=== PATIENT | female | born 2000 | race Caucasian/White ===

== ENCOUNTER 2022-01-16 19:30 | Observation (INO) ==
[2022-01-16] MEDS ORDERED: SODIUM CHLORIDE 0.9% 1000ML 1,000 ML IV ONE ×2 (20:32→21:27)
--- NOTE | 2022-01-16 20:43 | Emergency Department Note ---
History of Present Illness General Chief complaint: Throat Pain Stated complaint: TONSILITIS FLARE, NEEDS ANTIBIOTICS Time Seen by Provider: 01/16/22 19:37 History of Present Illness Maximum Pain Intensity: 4 This is an otherwise healthy 21-year-old female accompanied by her boyfriend who presents with recurrence of sore throat and fever. Her fever today was 102 orally. Yesterday she felt fine and did not have a fever. She rates the sore throat as a 3 or 4 out of 10. She took some DayQuil prior to arrival for the fever. She has been able to tolerate her secretions and denies any neck rigidity or neck pain. Patient was seen in this emergency department on 01/09/2022 for similar symptoms, treated with a Medrol Dosepak and cephalexin for presumptive bacterial tonsillitis. She felt much better the next day, did not have a fever, and sore throat disappeared. Her symptoms returned the day after finishing the Medrol Dosepak. She continues with the cephalexin. Second mono test was negative at that visit. Patient had been evaluated 2 or 3 weeks ago for similar symptoms in [place] while on vacation. She had a negative rapid strep, mononucleosis, and Covid test. She was treated with 3 days of steroids and clindamycin. Her symptoms improved until the steroids were finished and then she developed fevers and sore throat again. Patient has spent the past few weeks with her boyfriend and he has not developed any symptoms. Denies any history of HIV, IV drug use, or blood-borne exposures. Is sexually active. Takes control, does not believe she is . She denies any significant past medical history related to her tonsils. Denies any prior surgeries. Denies any headache, sinus congestion, ear pain, cough, shortness of breath, chest pain, abdominal pain, nausea, vomiting, weakness, lightheadedness, dizziness, skin rash. Home Medications Medication Instructions Recorded Confirmed Type cephalexin 500 mg capsule 500 mg PO TID 10 Days #30 cap 01/09/22 01/16/22 Rx methylprednisolone 4 mg tablets in 4 mg PO DIRECTED #21 ea 01/09/22 01/16/22 Rx a dose pack (Medrol (Jose)) norethindrone 1 mg-ethinyl 1 tab PO QAM 01/09/22 01/16/22 History estradiol 20 mcg (24)-iron 75 mg (4) tablet ([place] 24 Fe) lactobacillus combination no.4 3 0 mmu cells PO QAM 01/16/22 01/16/22 History billion cell capsule (Probiotic) Allergies Allergy/AdvReac Type Severity Reaction Status Date / Time Penicillins Allergy Mild Hives Verified 01/17/22 00:55 Past Med/Surg History Medical History No significant medical problems Surgical History (Updated 01/17/22 @ 01:20 by MARY Shay) No pertinent past surgical history Social History Smoking Status: Never smoker Preferred Language: Luxembourger Feels Safe at Home: Yes Review of Systems See HPI for pertinent positives & negatives. and A total of 10 systems reviewed and were otherwise negative Physical Exam Vital Signs Vital Signs - 24 hr 01/16/22 19:33 01/16/22 20:06 01/16/22 20:30 Temperature 99.0 F 102.7 F H Temperature Source Temporal Artery Scan Oral Pulse Rate 120 H Pulse Rate [Apical] Respiratory Rate 18 Respiratory Effort / Characteristics Non-Labored Spontaneous Respiratory Depth Normal Respiratory Pattern Regular Blood Pressure 117/77 Blood Pressure [Left Arm] Blood Pressure Mean 90 Blood Pressure Mean [Left Arm] Pulse Oximetry 100 100 Oxygen Delivery Method Room Air Room Air Sepsis Recent Fever Within 48 Hours No Sepsis New/Unexplained Change in Mental Status No Sepsis Action Taken by Nursing No Action Required 01/16/22 21:31 01/16/22 23:19 01/17/22 00:30 Temperature 100.8 F H 100.9 F H 100.4 F H Temperature Source Oral Oral Oral Pulse Rate Pulse Rate [Apical] 122 H 117 H 108 H Respiratory Rate 18 18 18 Respiratory Effort / Characteristics Non-Labored Spontaneous Non-Labored Spontaneous Respiratory Depth Normal Normal Respiratory Pattern Regular Regular Blood Pressure Blood Pressure [Left Arm] 127/80 112/71 Blood Pressure Mean Blood Pressure Mean [Left Arm] 95 84 Pulse Oximetry 100 98 99 Oxygen Delivery Method Room Air Room Air Room Air Sepsis Recent Fever Within 48 Hours Sepsis New/Unexplained Change in Mental Status Sepsis Action Taken by Nursing CONSTITUTIONAL: Well developed, well nourished, in no acute distress. HEAD: Normocephalic, atraumatic. No facial swelling. EYES:conjunctivae normal, extraocular muscles intact, no discharge ENMT: External ears normal. TMs normal bilaterally. Nose with normal external appearance, no congestion. Oral mucous membranes moist. Tonsillar erythema with exudates noted. Tonsils 2+ bilaterally. Uvula midline. No evidence of unilateral peritonsillar abscess. Tolerating secretions without difficulty NECK: Full active range of motion. No rigidity. LYMPHATIC: No cervical adenopathy RESPIRATORY: Breathing unlabored and symmetric. Lungs clear to auscultation bilaterally. No wheeze, rales, or rhonchi. CARDIOVASCULAR: Regular rate and rhythm. No murmurs, rubs, or gallops. ABDOMEN: Normal bowel sounds. Soft, nontender, no peritonitis. No masses. No splenomegaly MUSCULOSKELETAL: Moves all extremities at all joints without pain or difficulty. No cyanosis or edema. Back with full range of motion. SKIN: [place], warm, dry. Intact. No rashes. NEUROLOGIC: Alert and oriented x 3. No acute motor or sensory deficits. Cranial nerves grossly intact. PSYCHIATRIC: Appropriate. Normal affect. Course Administered Medications Discontinued Medications Acetaminophen (Acetaminophen 325 Mg Tab) 650 mg PO NOW STA Stop: 01/16/22 23:50 Last Admin: 01/16/22 23:53 Dose: 650 mg Documented by: [id number] Sodium Chloride (Nss 1000ml) 1,000 mls @ 999 mls/hr IV .Q1H1M ONE Stop: 01/16/22 21:32 Last Infusion: 01/16/22 22:00 Dose: 0 mls/hr Documented by: [id number] Admin: 01/16/22 20:49 Dose: 999 mls/hr Documented by: [id number] Sodium Chloride (Nss 1000ml) 1,000 mls @ 999 mls/hr IV .Q1H1M ONE Stop: 01/16/22 22:27 Last Infusion: 01/16/22 23:09 Dose: 0 mls/hr Documented by: [id number] Admin: 01/16/22 22:08 Dose: 999 mls/hr Documented by: [id number] Ioversol (Optiray 320 100ml) 94 ml IV ONCE ONE Stop: 01/16/22 21:52 Last Admin: 01/16/22 21:52 Dose: 94 ml Documented by: [id number] Ketorolac Tromethamine (Ketorolac Tromethamine 15 Mg/Ml Vial) 15 mg IV NOW STA Stop: 01/16/22 22:02 Last Admin: 01/16/22 22:08 Dose: 15 mg Documented by: [id number] Medical Decision Making Medical Records Attestation: I reviewed the patient's medical records. Laboratory Data Result diagrams: 01/16/22 20:48 01/16/22 20:48 Lab Results 01/16/22 01/16/22 01/16/22 Range/Units 20:48 20:48 20:55 WBC 18.08 H (4.8-10.8) K/uL RBC 5.23 (4.2-5.4) M/uL Hgb 15.9 (12.0-16.0) g/dL Hct 47.4 H (37-47) % MCV 90.6 (80-100) fL MCH 30.4 (25-34) pg MCHC 33.5 (32-36) g/dL RDW Std Deviation 43.8 (36.4-46.3) fL RDW Coeff of Chin 13.3 (11.5-14.5) % Plt Count 376 (130-400) K/uL MPV 9.4 (7.4-10.4) fL Immature Gran % (Auto) 0.2 % Neut % (Auto) 82.2 % Lymph % (Auto) 6.7 % [place] % (Auto) 10.5 % Eos % (Auto) 0.2 % Baso % (Auto) 0.2 % Neut # (Auto) 14.84 H (1.4-6.5) K/uL Lymph # (Auto) 1.22 (1.2-3.4) K/uL [place] # (Auto) 1.90 H (0.11-0.59) K/uL Eos # (Auto) 0.04 (0-0.5) K/uL Baso # (Auto) 0.04 (0-0.2) K/uL Immature Gran # (Auto) 0.04 H (0.00-0.02) K/uL Sodium 137 (136-145) mmol/L Potassium 3.5 (3.5-5.1) mmol/L Chloride 102 (98-107) mmol/L Carbon Dioxide 25 (21-32) mmol/L Anion Gap 10 (3-11) BUN 15 (6-23) mg/dl Creatinine 1.23 H (0.6-1.2) mg/dl Est Cr Clr Drug Dosing 64.6 ml/min Est GFR ( Amer) 72.1 ml/min Est GFR (Non-Af Amer) 62.2 ml/min BUN/Creatinine Ratio 12.2 (10-20) Glucose 103 H (70-99(Fasting)) mg/dl Calcium 9.2 (8.5-10.1) mg/dl Total Bilirubin 0.5 (0.2-1.0) mg/dl AST 18 (13-39) U/L ALT 26 (7-52) U/L Alkaline Phosphatase 71 (34-104) U/L Total Protein 8.0 (6.0-8.3) gm/dl Albumin 4.6 (3.4-5.0) gm/dl Globulin 3.4 (2.5-4.0) gm/dl Albumin/Globulin Ratio 1.4 (0.9-2) POC Ur Test NEG (NEG) SARS-CoV-2, RNA, NAAT (NEGATIVE) 01/17/22 Range/Units 00:20 WBC (4.8-10.8) K/uL RBC (4.2-5.4) M/uL Hgb (12.0-16.0) g/dL Hct (37-47) % MCV (80-100) fL MCH (25-34) pg MCHC (32-36) g/dL RDW Std Deviation (36.4-46.3) fL RDW Coeff of Chin (11.5-14.5) % Plt Count (130-400) K/uL MPV (7.4-10.4) fL Immature Gran % (Auto) % Neut % (Auto) % Lymph % (Auto) % [place] % (Auto) % Eos % (Auto) % Baso % (Auto) % Neut # (Auto) (1.4-6.5) K/uL Lymph # (Auto) (1.2-3.4) K/uL [place] # (Auto) (0.11-0.59) K/uL Eos # (Auto) (0-0.5) K/uL Baso # (Auto) (0-0.2) K/uL Immature Gran # (Auto) (0.00-0.02) K/uL Sodium (136-145) mmol/L Potassium (3.5-5.1) mmol/L Chloride (98-107) mmol/L Carbon Dioxide (21-32) mmol/L Anion Gap (3-11) BUN (6-23) mg/dl Creatinine (0.6-1.2) mg/dl Est Cr Clr Drug Dosing ml/min Est GFR ( Amer) ml/min Est GFR (Non-Af Amer) ml/min BUN/Creatinine Ratio (10-20) Glucose (70-99(Fasting)) mg/dl Calcium (8.5-10.1) mg/dl Total Bilirubin (0.2-1.0) mg/dl AST (13-39) U/L ALT (7-52) U/L Alkaline Phosphatase (34-104) U/L Total Protein (6.0-8.3) gm/dl Albumin (3.4-5.0) gm/dl Globulin (2.5-4.0) gm/dl Albumin/Globulin Ratio (0.9-2) POC Ur Test (NEG) SARS-CoV-2, RNA, NAAT NEGATIVE (NEGATIVE) Imaging Data Radiologist's Impression: Preliminary Findings Only See Final Report For Complete Findings CT NECK: Enlargement of the tonsillar adenoids. Diffuse mucosal enhancement. Small curvilinear areas of low attenuation tonsils. Bilateral peritonsillar small irregular areas of low attenuation. Epiglottis, trachea and upper lung dobbins are unremarkable. No retropharyngeal fluid. Small and mildly enlarged bilateral nodes. Fluid in the left maxillary sinus. No acute findings in the bones Impression: Findings consistent with a severe pharyngitis. Small developing peritonsillar abscesses cannot be excluded. Radiologist: Johnnie Vo M.D. Study ready at 22:01 and initial results transmitted at 00:14 MDM Narrative 21-year-old female presents with recurrence of sore throat and fever despite clindamycin and cephalexin. Symptoms improve with steroids but then return when steroids are finished. Overall patient is well-appearing, nontoxic, tolerating secretions without difficulty. She is febrile at 102.7 and tachycardic in the 120s initially. She has some tonsillar erythema with exudates, tonsils 2+ bilaterally. No neck rigidity. No evidence of unilateral peritonsillar abscess. Given recurrence, risks and benefits of CT imaging were discussed with patient and she was agreeable with proceeding. She received IV fluids for tachycardia. Labs were obtained demonstrating an elevated white blood cell count of 18 which may be secondary to infection versus recent steroid use. Creatinine is slightly elevated at 1.23, she received 2 L IV fluids. She received Toradol for the fever, fever improved to 100.8 and her pain significantly improved. She received Tylenol 5 hours after taking DayQuil at home since fever persisted at 100.8. Despite 2 L IV fluids, she remained tachycardic. CT scan demonstrates possible early bilateral tonsillar abscesses/phlegmon. Case was discussed with ED attending and decision was made to admit the patient for IV antibiotics with ENT consult in the morning. I discussed this plan with the patient and she is agreeable. Case discussed with Dr. Alcazar (hospitalist) who agrees to admit the patient for IV antibiotics, further management, and she recommends Unasyn after discussing her allergy which is mild hives according to patient who spoke with her mother. Impression & Plan Acute tonsillitis, Fever, Leukocytosis Discharge Plan Visit Data Chief Complaint: Throat Pain Stated Complaint: TONSILITIS FLARE, NEEDS ANTIBIOTICS ED Provider: Joni Jones ED Midlevel Provider: Marcelo Willis Discharge Problem: Acute tonsillitis, Fever, Leukocytosis Patient Disposition: Admitted As Inpatient Condition: Good Forms Stand Alone Forms: My [facility] Prescriptions Prescriptions: No Action norethindrone-e.estradiol-iron [[place] 24 Fe] 1 mg-20 mcg (24)/75 mg (4) Tablet 1 tab PO QAM RF: 0 cephalexin 500 mg capsule 500 mg PO TID 10 Days Qty: 30 RF: 0 methylprednisolone [Medrol (Jose)] 4 mg tablets,dose pack 4 mg PO DIRECTED Qty: 21 RF: 0 Probiotic 3 billion cell Capsule 0 mmu cells PO QAM RF: 0 Referrals Referrals: [facility] [Primary Care Provider] -
[2022-01-16 21:02] LABS: Basophils # (auto) 0.04 K/uL (0-0.2); Basophils % (auto) 0.2 %; Eosinophils # (auto) 0.04 K/uL (0-0.5); Eosinophils % (auto) 0.2 %; Hematocrit (blood only) 47.4 % (37-47); Hemoglobin 15.9 g/dL (12.0-16.0); Immature Granulocytes # (auto) 0.04 K/uL (0.00-0.02); Immature Granulocytes % (auto) 0.2 %; Lymphocytes # (auto) 1.22 K/uL (1.2-3.4); Lymphocytes % (auto) 6.7 %; Mean Corpuscular Hemoglobin 30.4 pg (25-34); Mean Corpuscular Hgb Conc 33.5 g/dL (32-36); Mean Corpuscular Volume 90.6 fL (80-100); Mean Platelet Volume 9.4 fL (7.4-10.4); Monocytes % (auto) 10.5 %; Neutrophils # (auto) 14.84 K/uL (1.4-6.5); Neutrophils % (auto) 82.2 %; Platelet Count 376 K/uL (130-400); RDW Coefficient of Variation 13.3 % (11.5-14.5); RDW Standard Deviation 43.8 fL (36.4-46.3); Red Blood Count 5.23 M/uL (4.2-5.4); White Blood Count 18.08 K/uL (4.8-10.8)
[2022-01-16 21:25] LABS: Albumin Globulin Ratio 1.4 (0.9-2); Albumin Level 4.6 gm/dl (3.4-5.0); BUN Creatinine Ratio 12.2 (10-20); Bilirubin,Total 0.5 mg/dl (0.2-1.0); Calcium 9.2 mg/dl (8.5-10.1); Creatinine Clr Calc Pharmacy 64.6 ml/min; Est GFR (African American) 72.1 ml/min; Est GFR (Non-African American) 62.2 ml/min; Globulin 3.4 gm/dl (2.5-4.0); Potassium 3.5 mmol/L (3.5-5.1)
[2022-01-16] MEDS ORDERED: OPTIRAY 320 100ml IV ONE (21:51)
[2022-01-16] MEDS ORDERED: KETOROLAC TROMETHAMINE 15 MG/ML VIAL IV STA (22:01)
[2022-01-16] MEDS ORDERED: ACETAMINOPHEN 325 MG TAB PO STA (23:49)
[2022-01-17] MEDS ORDERED: AMPICILLIN/SULBACTAM SOD 3,000 MG in 0.9 % SODIUM CHLORIDE 100 ML IV STA (01:18)
--- NOTE | 2022-01-17 01:28 | History & Physical Report ---
Date of Service January 17, 2022 Assessment & Plan (1) Acute tonsillitis: Plan: 21-year-old female with noncontributory past medical history presented to the emergency department for evaluation of recurrence of sore throat and fever diagnosed with severe pharyngitis and possible peritonsillar abscess. #Peritonsillar abscess secondary to acute bacterial tonsillitis See HPI for history. Patient presented the emergency department with fevers, tachycardic, given a dose of Unasyn tolerated it well and . Patient does have a mild penicillin allergy however appears to be tolerating Unasyn. Will treat with IV antibiotics and monitor respiratory status. For now we will hold off on additional steroids, if patient fails to improve or worsens with antibiotic therapy would consider adding steroids and consulting specialist. If peritonsillar abscess fails to improve will consult ENT for further evaluation and management -Unasyn 3 g q6h -Follow cultures -Toradol 15 mg as needed -Scheduled Tylenol 1 g every 8 hours -Monitor respiratory status -Consider consulting ENT -If no improvement would give Dexamethasone FENa: Regular Code Status: Full code DVT PPX: Lovenox PT/OT: Not indicated Case Management: Not indicated Dispo: Yelena Alcazar MD PGY 3, FCM This chart was completed utilizing [employer] voice recognition software. Grammatical errors, random word insertions, pronoun errors, and in complete sentences are an occasional consequence of the system. Any questions or concerns about the content, text, or information contained within the body of this dictation should be addressed directly to the physician for clarification. (2) Acute bacterial tonsillitis: (3) Peritonsillar abscess: History of Present Illness Primary Care Provider: [facility] 21-year-old female with noncontributory past medical history presented to the emergency department for evaluation of recurrence of sore throat and fever diagnosed with severe pharyngitis and possible peritonsillar abscess. She had a fever today was 102 orally, rating her sore throat is a 3 or 4 out of 10. She is taking DayQuil to treat her symptoms without significant improvement. She has previously been evaluated for similar symptoms twice before the first time was 3 weeks ago while on vacation in [place] where she had a negative rapid strep test, negative mono test and negative Covid test. She was treated with 3 days of steroids and clindamycin and her symptoms improved with the steroids were finished she again developed fevers and sore throat she was reevaluated in our emergency department on 319 treated with a Medrol Dosepak and cephalexin for presumptive bacterial tonsillitis, she noted feeling much better the next day with resolution of her symptoms. Her symptoms returned after completing the Medrol Dosepak. She continues with cephalexin. Patient has been the past few weeks her boyfriend who has not developed any symptoms she notes being sexually active, denies any IV drug use, history of HIV or blood-borne exposures. In the emergency department routine labs were obtained, CBC demonstrating a white count of 18 with a neutrophil predominance, chemistries demonstrating elevated creatinine to 1.23, CMP within normal limits, urine test negative. CT of the neck demonstrating findings consistent with severe pharyngitis, small developing peritonsillar abscess cannot be excluded. Given these findings the decision was made to admit her for IV antibiotics. On arrival the patient was sitting comfortably in the bed, and reiterated a history as described above. Per discussion with the patient she has a very mild penicillin allergy. Endorses subjective fever and chills sore throat denies nausea or vomiting, chest pressure chest pain, shortness of breath. Allergies Allergy/AdvReac Type Severity Reaction Status Date / Time Penicillins Allergy Mild Hives Verified 01/17/22 00:55 Home Medications Medication Instructions Recorded Confirmed Type cephalexin 500 mg capsule 500 mg PO TID 10 Days #30 cap 01/09/22 01/16/22 Rx methylprednisolone 4 mg tablets in 4 mg PO DIRECTED #21 ea 01/09/22 01/16/22 Rx a dose pack (Medrol (Jose)) norethindrone 1 mg-ethinyl 1 tab PO QAM 01/09/22 01/16/22 History estradiol 20 mcg (24)-iron 75 mg (4) tablet ([place] 24 Fe) lactobacillus combination no.4 3 0 mmu cells PO QAM 01/16/22 01/16/22 History billion cell capsule (Probiotic) Past Med/Surg History Medical History No significant medical problems Surgical History No pertinent past surgical history Social History Smoking Status: Never smoker Preferred Language: Syriac Feels Safe at Home: Yes Review of Systems Review of Systems: as above Physical Exam Physical Exam: General: No acute distress HEENT: Normocephalic atraumatic Oropharynx: Erythematous, bilateral swollen tonsils, exudate visible bilaterally Neck: No significant lymphadenopathy, trachea midline, normal to visual inspection Cardiac: Regular rate and rhythm, normal S1, normal S2, I did not appreciated any significant murmurs rubs or gallops, I did not appreciate any significant pedal edema, No calf tenderness, capillary refill is less than 3 seconds Respiratory: Clear to auscultation bilaterally with symmetrical chest rise, I did not appreciate any significant wheezes, rales, rhonchi, no increased work of breathing GI: Normal bowel sounds, soft, nontender in all 4 quadrants, nondistended MSK: No sensory or motor changes, moves all extremities without issue, extremities are warm and well-perfused Skin: [place], clean, dry, intact. Neuro: Alert and oriented x4 Psych: Calm, cooperative, logical thought process Results & Data Results & Data ([facility]) Vital Signs (Past 12 Hours) Vital Signs Temp Pulse Pulse Resp BP BP Pulse Ox 01/17/22 00:30 38.0 C H 108 H 18 112/71 99 01/16/22 23:19 38.3 C H 117 H 18 98 01/16/22 21:31 38.2 C H 122 H 18 127/80 100 01/16/22 20:30 100 01/16/22 20:06 39.3 C H 01/16/22 19:33 37.2 C 120 H 18 117/77 100 Laboratory Results 01/17/22 01/17/22 01/16/22 Range/Units 01:00 00:20 20:55 WBC (4.8-10.8) K/uL RBC (4.2-5.4) M/uL Hgb (12.0-16.0) g/dL Hct (37-47) % MCV (80-100) fL MCH (25-34) pg MCHC (32-36) g/dL RDW Std Deviation (36.4-46.3) fL RDW Coeff of Chin (11.5-14.5) % Plt Count (130-400) K/uL MPV (7.4-10.4) fL Immature Gran % (Auto) % Neut % (Auto) % Lymph % (Auto) % [place] % (Auto) % Eos % (Auto) % Baso % (Auto) % Neut # (Auto) (1.4-6.5) K/uL Lymph # (Auto) (1.2-3.4) K/uL [place] # (Auto) (0.11-0.59) K/uL Eos # (Auto) (0-0.5) K/uL Baso # (Auto) (0-0.2) K/uL Immature Gran # (Auto) (0.00-0.02) K/uL Sodium (136-145) mmol/L Potassium (3.5-5.1) mmol/L Chloride (98-107) mmol/L Carbon Dioxide (21-32) mmol/L Anion Gap (3-11) BUN (6-23) mg/dl Creatinine (0.6-1.2) mg/dl Est Cr Clr Drug Dosing ml/min Est GFR ( Amer) ml/min Est GFR (Non-Af Amer) ml/min BUN/Creatinine Ratio (10-20) Glucose (70-99(Fasting)) mg/dl Calcium (8.5-10.1) mg/dl Total Bilirubin (0.2-1.0) mg/dl AST (13-39) U/L ALT (7-52) U/L Alkaline Phosphatase (34-104) U/L Total Protein (6.0-8.3) gm/dl Albumin (3.4-5.0) gm/dl Globulin (2.5-4.0) gm/dl Albumin/Globulin Ratio (0.9-2) POC Ur Test NEG (NEG) Nasal Screen MRSA (PCR) Pending SARS-CoV-2, RNA, NAAT NEGATIVE (NEGATIVE) 01/16/22 01/16/22 Range/Units 20:48 20:48 WBC 18.08 H (4.8-10.8) K/uL RBC 5.23 (4.2-5.4) M/uL Hgb 15.9 (12.0-16.0) g/dL Hct 47.4 H (37-47) % MCV 90.6 (80-100) fL MCH 30.4 (25-34) pg MCHC 33.5 (32-36) g/dL RDW Std Deviation 43.8 (36.4-46.3) fL RDW Coeff of Chin 13.3 (11.5-14.5) % Plt Count 376 (130-400) K/uL MPV 9.4 (7.4-10.4) fL Immature Gran % (Auto) 0.2 % Neut % (Auto) 82.2 % Lymph % (Auto) 6.7 % [place] % (Auto) 10.5 % Eos % (Auto) 0.2 % Baso % (Auto) 0.2 % Neut # (Auto) 14.84 H (1.4-6.5) K/uL Lymph # (Auto) 1.22 (1.2-3.4) K/uL [place] # (Auto) 1.90 H (0.11-0.59) K/uL Eos # (Auto) 0.04 (0-0.5) K/uL Baso # (Auto) 0.04 (0-0.2) K/uL Immature Gran # (Auto) 0.04 H (0.00-0.02) K/uL Sodium 137 (136-145) mmol/L Potassium 3.5 (3.5-5.1) mmol/L Chloride 102 (98-107) mmol/L Carbon Dioxide 25 (21-32) mmol/L Anion Gap 10 (3-11) BUN 15 (6-23) mg/dl Creatinine 1.23 H (0.6-1.2) mg/dl Est Cr Clr Drug Dosing 64.6 ml/min Est GFR ( Amer) 72.1 ml/min Est GFR (Non-Af Amer) 62.2 ml/min BUN/Creatinine Ratio 12.2 (10-20) Glucose 103 H (70-99(Fasting)) mg/dl Calcium 9.2 (8.5-10.1) mg/dl Total Bilirubin 0.5 (0.2-1.0) mg/dl AST 18 (13-39) U/L ALT 26 (7-52) U/L Alkaline Phosphatase 71 (34-104) U/L Total Protein 8.0 (6.0-8.3) gm/dl Albumin 4.6 (3.4-5.0) gm/dl Globulin 3.4 (2.5-4.0) gm/dl Albumin/Globulin Ratio 1.4 (0.9-2) POC Ur Test (NEG) Nasal Screen MRSA (PCR) SARS-CoV-2, RNA, NAAT (NEGATIVE) Diagnostic Findings Soft tissue neck CTPer stat read: Enlargement of the tonsillar adenoids. Diffuse mucosal enhancement. Small curvilinear areas of low attenuation tonsils. Bilateral peritonsillar small irregular areas of low attenuation. Epiglottis, trachea and upper lung dobbins are unremarkable. No retropharyngeal fluid. Small and mildly enlarged bilateral nodes. Fluid in the left maxillary sinus. No acute findings in the bones Impression: Findings consistent with a severe pharyngitis. Small developing peritonsillar abscesses cannot be excluded Supervising Physician Co-Signing Physician Notes Patient seen and examined, chart reviewed, case discussed with Dr. Kyra Alcazar I agree with his assessment and plan as documented above. In brief, patient is a 21-year-old female with no significant past medical or surgical history presenting with severe pharyngitis, CT concerning for possible early peritonsillar abscesses. Patient is febrile, hemodynamically stable and nontoxic in appearance Skinwarm, dry, intact, no rash or lesions HEENTnormocephalic, atraumatic, palpable anterior cervical nodes present left greater than right, posterior pharynx with erythema, enlarged tonsils bilaterally with white exudate. No stridor or airway edema Heart+ S1, S2, regular Lungsclear to auscultation Abdomenpositive bowel sounds, soft, nontender Labs and images reviewed. Significant for WBC = 18.08 with neutrophil predominance as well as elevation of monocytes creatinine = 1.23 Covid is negative [id number] female presenting with ongoing pharyngitis. Has had negative strep, mono and Covid testing in the past Unasyn Follow cultures Toradol as needed for pain, Tylenol as needed for pain, consider additional steroid dosing Remainder of plan as above (1) Acute tonsillitis Pharyngitis/tonsillitis etiology: unspecified etiology Qualified Code(s): J03.90 - Acute tonsillitis, unspecified
[2022-01-17] MEDS ORDERED: COUGH DROP (SUGAR FREE) LOZ 24 LOZ/1 BOX BUCCAL PRN (01:57)
--- NOTE | 2022-01-17 03:48 | Billing Data ---
Date of Service January 17, 2022 Coding Level of Care Code INT OBSERVATION CARE 50M LVL 2
[2022-01-17] MEDS: KETOROLAC TROMETHAMINE 15 MG/ML VIAL IV PRN ×3 (05:17→20:51)
[2022-01-17] MEDS ORDERED: AMPICILLIN/SULBACTAM SOD 3,000 MG in 0.9 % SODIUM CHLORIDE 100 ML IM SCH (08:00)
--- NOTE | 2022-01-17 08:14 | Hospitalist Progress Note ---
Date of Service January 17, 2022 Assessment & Plan (1) Acute tonsillitis: Plan: - Symptoms ongoing X 3 weeks - Has since failed clindamycin and Keflex along with 2 tapering courses of prednisone - Monospot, Covid, and rapid strep negative - Fever of 102.8, tachycardia of 122, and leukocytosis of 18,000 on arrival - Tolerating oral intake. Able to control oral secretions. No jaw claudication. - CT of the soft tissues of the neck showing severe pharyngitis with ques tionable developing peritonsillar abscess - Patient currently on Unasyn. Does have a reported penicillin allergy but seems to be tolerating Unasyn at present time. - I have added an EBV. Clinically, seems very consistent with mono. Perhaps her Monospot is negative as her viral load is not high enough to flag a positive test. She is now 3 weeks into the symptom course - Biofire obtained - Given that she does practice oral sex, have ordered an HSV along with throat swab for chlamydia and gonorrhea. Will empirically add doxycycline to cover for this - If no clinical improvement or worsening in symptomatology, will reach out to ENT to consider aspiration; however, no indications at this time - No clinical evidence to suggest Gaetano's angina (2) Fever: Plan: - Antipyretics as needed - Would like to see patient defervesced and remained afebrile X 24 hours prior to discharge to home (3) Leukocytosis: Plan: - 18 K upon arrival. - Likely due to underlying infectious process; however, was on steroids. That may be contributing (4) CARMEN (acute kidney injury): Plan: - Creatinine 1.23 upon arrival. Likely related to dehydration - Currently improving with IV hydration. Continue this Plan: Plan of care discussed with Dr. Marvin. Further orders as warranted. Admission and Anticipated Discharge Date Admission Date: January 17, 2022 Subjective Patient seen on daily rounds today. Hospitalized early this morning with severe pharyngitis ongoing for 3 weeks. Has been on 2 rounds of antibiotics (clindamycin and Keflex) along with 2 tapering courses of prednisone. With each prednisone prescription, pain improved. Reports with down titration of prednisone, pain worsens. Monospot negative, strep screen negative, Covid test negative. She denies any abdominal discomfort, nausea or vomiting. She did have excessive fatigue at the onset of this infection 3 weeks ago but currently, no excessive fatigue. She is sexually active and does participate in oral sex. Currently, she is tolerating oral intake. She is able to control her own oral secretions. No drooling. No jaw claducation Review of Systems Review of Systems: All systems reviewed and are unremarkable except as noted in HPI and below Denies headache, nasal congestion, cough, chest pain, shortness of breath, palpitations, orthopnea, PND, abdominal pain, nausea, vomiting, diarrhea, constipation, dysuria, hematuria, frequency, back pain, joint pain or swelling, easy bruising or bleeding, skin lesions or rashes. Physical Exam Physical Exam: General: Resting comfortably in her hospital bed. She does not appear ill or toxic. NAD. HEENT: Does not have a muffled or "hot potato" voice. Able to control oral secretions. Does have tonsillar enlargement (R>L) with exudate and ulcerations on the right tonsil. Anterior and posterior cervical chain lymphadenopathy. Able to turn her head side to side without difficulty. Neck: No JVD. Negative hepatojugular reflex Cardiac: RRR without M/G/R Lungs: CTA without W/R/R Abdomen: Normoactive X4. Soft and nontender in all quadrants. Extremities: No peripheral clubbing cyanosis or edema Neuro: A&O X4. Cranial nerves II through XII are grossly intact. No focal neuro deficits Skin: No obvious skin lesions or rashes Psych: Appropriate affect. Pleasant and cooperative Results & Data Results & Data ([facility]) Vital Signs (Past 12 Hours) Vital Signs Temp Pulse Resp BP Pulse Ox 01/17/22 07:34 37.6 C H 109 H 16 111/68 94 01/17/22 05:14 38.8 C H 01/17/22 04:00 37.5 C 104 H 14 113/73 98 01/17/22 03:15 37.8 C H 98 H 18 119/72 98 01/17/22 02:05 37.8 C H 108 H 20 109/68 98 01/17/22 00:30 38.0 C H 108 H 18 112/71 99 01/16/22 23:19 38.3 C H 117 H 18 98 01/16/22 21:31 38.2 C H 122 H 18 127/80 100 01/16/22 20:30 100 Laboratory Results 01/17/22 05:10 01/17/22 05:10 PG Care Time/CCT Total # of Minutes Spent Total Time Spent with Patient: Total time spent is greater than 50% in coordination of care (as documented) at patient's floor/unit and/or counseling patient: Coding Level of Care Code None Diagnoses Acute tonsillitis J03.90 Pharyngitis/tonsillitis etiology: unspecified etiology Fever R50.81 Fever type: due to other condition Leukocytosis D72.829 Leukocytosis type: unspecified CARMEN (acute kidney injury) N17.9 (1) Acute tonsillitis Pharyngitis/tonsillitis etiology: unspecified etiology Qualified Code(s): J03.90 - Acute tonsillitis, unspecified (2) Fever Fever type: due to other condition Qualified Code(s): R50.81 - Fever presenting with conditions classified elsewhere (3) Leukocytosis Leukocytosis type: unspecified Qualified Code(s): D72.829 - Elevated white blood cell count, unspecified
[2022-01-17] MEDS ORDERED: LINEZOLID 600 MG/300 ML D5W IV SCH (08:15)
[2022-01-17] MEDS ORDERED: LINEZOLID CONSULT ACTIVE PRN (08:15)
[2022-01-17 08:45] LABS: Basophils # (auto) 0.02 K/uL (0-0.2); Basophils % (auto) 0.1 %; Eosinophils # (auto) 0.01 K/uL (0-0.5); Eosinophils % (auto) 0.1 %; Hematocrit (blood only) 41.6 % (37-47); Hemoglobin 13.6 g/dL (12.0-16.0); Immature Granulocytes # (auto) 0.04 K/uL (0.00-0.02); Immature Granulocytes % (auto) 0.3 %; Lymphocytes # (auto) 1.28 K/uL (1.2-3.4); Lymphocytes % (auto) 8.3 %; Mean Corpuscular Hemoglobin 30.1 pg (25-34); Mean Platelet Volume 10.2 fL (7.4-10.4); Monocytes # (auto) 1.85 K/uL (0.11-0.59); Neutrophils % (auto) 79.2 %; Platelet Count 285 K/uL (130-400); RDW Coefficient of Variation 13.4 % (11.5-14.5); RDW Standard Deviation 44.9 fL (36.4-46.3); Red Blood Count 4.52 M/uL (4.2-5.4)
[2022-01-17] MEDS: POLYETHYLENE (MIRALAX) 17 GM PACK PO SCH (08:48)
[2022-01-17 08:50] LABS: Mean Corpuscular Hgb Conc 32.7 g/dL (32-36)
[2022-01-17] MEDS: ACETAMINOPHEN 500 MG TAB PO SCH ×3 (08:52→21:12)
[2022-01-17] MEDS: ADVANCED PROBIOTIC 1250 MG CAPSULE PO SCH (08:52)
[2022-01-17] MEDS: AMPICILLIN/SULBACTAM SOD 3,000 MG in 0.9 % SODIUM CHLORIDE 100 ML IV SCH ×3 (08:52→19:58)
--- NOTE | 2022-01-17 08:54 | CT Scan Report ---
CT soft tissue neck w con CLINICAL HISTORY: tonsillitis recurrent despite abx, febrile Technique: Axial CT images of the soft tissues of the neck were obtained following intravenous admini stration of 100 cc of Omnipaque 300. Automated dose lowering techniques and/or adjustment according t o patient size were utilized for this exam. Comparison: None available at the time of this dictation. Findings: Rim-enhancing fluid collections are seen in the bilateral tonsils. The oropharynx, hypopharynx, laryn x, and trachea are patent. Bilateral enlarged lymph nodes measuring up to 11 mm noted. The parotids a nd submandibular glands are normal. There is a tiny right thyroid nodule which does not require follo w-up by ACR criteria. Imaged portions of the brain parenchyma are unremarkable. There is a air-fluid level in the left max illary sinus. Impression: Bilateral small peritonsillar abscesses with associated cervical lymph node enlargement. The airway i s broadly patent. There is left maxillary sinusitis. ACT 112: Negative or not required by law. Electronically signed by: Abel Brown M.D. 01/17/2022 8:52 AM
[2022-01-17 08:55] LABS: BUN Creatinine Ratio 8.2 (10-20); Calcium 8.2 mg/dl (8.5-10.1); Creatinine Clr Calc Pharmacy 72.2 ml/min; Est GFR (African American) 82.5 ml/min; Est GFR (Non-African American) 71.2 ml/min; Magnesium 1.7 mg/dl (1.7-2.4)
[2022-01-17] MEDS ORDERED: FIRST - Mouthwash BLM 119 ML PO PRN (09:56)
[2022-01-17 10:05] LABS: Adenovirus PCR Not Detected (NotDetected); Bordetella parapertussis PCR Not Detected (NotDetected); Bordetella pertussis PCR Not Detected (NotDetected); Chlamydia pneumoniae PCR Not Detected (NotDetected); Coronavirus 229E PCR Not Detected (NotDetected); Coronavirus CoV-2 (COVID19)PCR Not Detected (NotDetected); Coronavirus HKU1 PCR Not Detected (NotDetected); Coronavirus NL63 PCR Not Detected (NotDetected); Coronavirus OC43PCR Not Detected (NotDetected); Human Metapneumovirus PCR Not Detected (NotDetected); Influenza A PCR Not Detected (NotDetected); Influenza B PCR Not Detected (NotDetected); Mycoplasma pneumoniae PCR Not Detected (NotDetected); Parainfluenza Virus 1 PCR Not Detected (NotDetected); Parainfluenza Virus 2 PCR Not Detected (NotDetected); Parainfluenza Virus 3 PCR Not Detected (NotDetected); Parainfluenza Virus 4 PCR Not Detected (NotDetected); Respiratory Syncytial VirusPCR Not Detected (NotDetected); Rhinovirus/Enterovirus PCR Not Detected (NotDetected)
[2022-01-17] MEDS: DOXYCYCLINE HYCLATE 100 MG in DEXTROSE 5% 100 ML IV SCH ×2 (11:44→21:12)
[2022-01-18] MEDS: AMPICILLIN/SULBACTAM SOD 3,000 MG in 0.9 % SODIUM CHLORIDE 100 ML IV SCH ×4 (01:47→19:59)
[2022-01-18] MEDS: ACETAMINOPHEN 500 MG TAB PO SCH ×3 (05:50→21:13)
[2022-01-18 07:13] LABS: Hemoglobin 12.8 g/dL (12.0-16.0); Mean Corpuscular Hemoglobin 30.5 pg (25-34); Mean Corpuscular Hgb Conc 33.7 g/dL (32-36); Mean Corpuscular Volume 90.5 fL (80-100); Mean Platelet Volume 9.6 fL (7.4-10.4); Platelet Count 244 K/uL (130-400); RDW Coefficient of Variation 13.3 % (11.5-14.5); RDW Standard Deviation 44.3 fL (36.4-46.3); White Blood Count 16.74 K/uL (4.8-10.8)
[2022-01-18 07:42] LABS: Calcium 8.3 mg/dl (8.5-10.1); Creatinine Clr Calc Pharmacy 89.2 ml/min; Est GFR (African American) 106.6 ml/min; Potassium 3.8 mmol/L (3.5-5.1)
[2022-01-18 07:45] LABS: Basophils # (auto) 0.02 K/uL (0-0.2); Basophils % (auto) 0.1 %; Eosinophils # (auto) 0.01 K/uL (0-0.5); Eosinophils % (auto) 0.1 %; Immature Granulocytes # (auto) 0.04 K/uL (0.00-0.02); Immature Granulocytes % (auto) 0.2 %; Lymphocytes # (auto) 1.52 K/uL (1.2-3.4); Lymphocytes % (auto) 9.1 %; Monocytes # (auto) 1.98 K/uL (0.11-0.59); Monocytes % (auto) 11.8 %; Neutrophils # (auto) 13.17 K/uL (1.4-6.5); Neutrophils % (auto) 78.7 %
[2022-01-18] MEDS: ADVANCED PROBIOTIC 1250 MG CAPSULE PO SCH (08:01)
[2022-01-18] MEDS: POLYETHYLENE (MIRALAX) 17 GM PACK PO SCH (08:01)
[2022-01-18] MEDS: PATIENT'S OWN ORAL CONTRACEPTIVE PO SCH (08:01)
--- NOTE | 2022-01-18 10:51 | Hospitalist Progress Note ---
Date of Service January 18, 2022 Assessment & Plan (1) Acute tonsillitis: Plan: - Symptoms ongoing X 3 weeks - Has since failed clindamycin and Keflex along with 2 tapering courses of prednisone - Monospot, Covid, and rapid strep negative - Fever of 102.8, tachycardia of 122, and leukocytosis of 18,000 on arrival - Tolerating oral intake. Able to control oral secretions. No jaw claudication. - CT of the soft tissues of the neck showing severe pharyngitis with ques tionable developing peritonsillar abscess - Patient currently on Unasyn. Does have a reported penicillin allergy but seems to be tolerating Unasyn at present time. - Doxycycline added (for coverage against Chlamydia and Gonorrhea) - EBV pending Clinically, seems very consistent with mono. Perhaps her Monospot is negative as her viral load is not high enough to flag a positive test. She is now 3 weeks into the symptom course - Biofire negative - Given that she does practice oral sex, have ordered an HSV along with throat swab for chlamydia and gonorrhea. - No clinical evidence to suggest Gaetano's angina -Case discussed with ENT (Dr. Valadez) who agrees no clinical indication for aspiration or I&D at this time. She agrees with treatment as outlined above. She would recommend IV antibiotics X 36 to 48 hours and if clinical improvement noted, discharged home with follow-up. 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 In addition, she has seen multiple students with post Covid peritonsillar abscesses. (2) Fever: Plan: - Antipyretics as needed - Would like to see patient defervesced and remained afebrile X 24 hours prior to discharge to home - Patient reports a fever of 103 F last evening; however, did not documented fever since yesterday morning (3) Leukocytosis: Plan: - 18 K upon arrival. - Likely due to underlying infectious process; however, was on steroids. That may be contributing - Down to 15 K. Continue to trend (4) CARMEN (acute kidney injury): Plan: - Creatinine 1.23 upon arrival. Likely related to dehydration - improved with IVF Plan: Plan of care discussed with Dr. Garces. Further orders as warranted. Admission and Anticipated Discharge Date Admission Date: January 17, 2022 Subjective Patient seen on daily rounds today. Overall vocalizes that she feels "much better". Throat not nearly as sore. Claims to have had a fever or 103. Nothing documented. Yesterday, was feeling "hot and cold all day" but hasn't felt that way today. Tolerating oral intake. Denies nausea or vomiting. Review of Systems Review of Systems: All systems reviewed and are unremarkable except as noted in HPI and below Denies headache, nasal congestion, cough, chest pain, shortness of breath, palpitations, orthopnea, PND, abdominal pain, nausea, vomiting, diarrhea, constipation, dysuria, hematuria, frequency, back pain, joint pain or swelling, easy bruising or bleeding, skin lesions or rashes. Physical Exam Physical Exam: General: Resting comfortably in her hospital bed. She does not appear ill or toxic. NAD. HEENT: Does not have a muffled or "hot potato" voice. Able to control oral secretions. Does have tonsillar enlargement (R>L) with exudate and ulcerations on the right tonsil. Anterior and posterior cervical chain lymphadenopathy. Able to turn her head side to side without difficulty. Neck: No JVD. Negative hepatojugular reflex Cardiac: RRR without M/G/R Lungs: CTA without W/R/R Abdomen: Normoactive X4. Soft and nontender in all quadrants. Extremities: No peripheral clubbing cyanosis or edema Neuro: A&O X4. Cranial nerves II through XII are grossly intact. No focal neuro deficits Skin: No obvious skin lesions or rashes Psych: Appropriate affect. Pleasant and cooperative Results & Data Results & Data ([facility]) Vital Signs (Past 12 Hours) Vital Signs Temp Pulse Resp BP Pulse Ox 01/18/22 07:35 37.3 C 94 H 16 111/71 96 PG Care Time/CCT Total # of Minutes Spent Total Time Spent with Patient: Total time spent is greater than 50% in coordination of care (as documented) at patient's floor/unit and/or counseling patient: Coding Level of Care Code 12384 Subseq Obs Care Lvl 2 Diagnoses Acute tonsillitis J03.90 Pharyngitis/tonsillitis etiology: unspecified etiology Fever R50.81 Fever type: due to other condition Leukocytosis D72.829 Leukocytosis type: unspecified CARMEN (acute kidney injury) N17.9 (1) Acute tonsillitis Pharyngitis/tonsillitis etiology: unspecified etiology Qualified Code(s): J03.90 - Acute tonsillitis, unspecified (2) Fever Fever type: due to other condition Qualified Code(s): R50.81 - Fever presenting with conditions classified elsewhere (3) Leukocytosis Leukocytosis type: unspecified Qualified Code(s): D72.829 - Elevated white blood cell count, unspecified
[2022-01-18] MEDS: DOXYCYCLINE HYCLATE 100 MG in DEXTROSE 5% 100 ML IV SCH ×2 (12:04→23:06)
[2022-01-19] MEDS: AMPICILLIN/SULBACTAM SOD 3,000 MG in 0.9 % SODIUM CHLORIDE 100 ML IV SCH (01:48)
[2022-01-19] MEDS: ACETAMINOPHEN 500 MG TAB PO SCH (06:05)
[2022-01-19] MEDS: ADVANCED PROBIOTIC 1250 MG CAPSULE PO SCH (07:29)
[2022-01-19] MEDS: PATIENT'S OWN ORAL CONTRACEPTIVE PO SCH (07:29)
[2022-01-19] MEDS: POLYETHYLENE (MIRALAX) 17 GM PACK PO SCH (07:30)
[2022-01-19 08:33] LABS: Basophils # (auto) 0.02 K/uL (0-0.2); Basophils % (auto) 0.2 %; Eosinophils # (auto) 0.14 K/uL (0-0.5); Eosinophils % (auto) 1.1 %; Hemoglobin 13.6 g/dL (12.0-16.0); Immature Granulocytes # (auto) 0.03 K/uL (0.00-0.02); Immature Granulocytes % (auto) 0.2 %; Lymphocytes % (auto) 15.2 %; Mean Corpuscular Hemoglobin 30.6 pg (25-34); Mean Corpuscular Volume 89.9 fL (80-100); Mean Platelet Volume 9.8 fL (7.4-10.4); Monocytes # (auto) 1.48 K/uL (0.11-0.59); Monocytes % (auto) 11.2 %; Neutrophils # (auto) 9.51 K/uL (1.4-6.5); Neutrophils % (auto) 72.1 %; Platelet Count 298 K/uL (130-400); RDW Coefficient of Variation 13.6 % (11.5-14.5); RDW Standard Deviation 44.9 fL (36.4-46.3); Red Blood Count 4.45 M/uL (4.2-5.4); White Blood Count 13.18 K/uL (4.8-10.8)
[2022-01-19 09:06] LABS: Calcium 8.8 mg/dl (8.5-10.1); Creatinine Clr Calc Pharmacy 79.4 ml/min; Est GFR (African American) 92.6 ml/min; Est GFR (Non-African American) 79.9 ml/min; Magnesium 1.8 mg/dl (1.7-2.4); Potassium 3.6 mmol/L (3.5-5.1)
[2022-01-19] MEDS: DOXYCYCLINE HYCLATE 100 MG in DEXTROSE 5% 100 ML IV SCH (11:01)
--- NOTE | 2022-01-19 13:52 | Discharge Summary ---
Date of Service January 19, 2022 Admission HPI Per Admitting Provider 21-year-old female with noncontributory past medical history presented to the emergency department for evaluation of recurrence of sore throat and fever diagnosed with severe pharyngitis and possible peritonsillar abscess. She had a fever today was 102 orally, rating her sore throat is a 3 or 4 out of 10. She is taking DayQuil to treat her symptoms without significant improvement. She has previously been evaluated for similar symptoms twice before the first time was 3 weeks ago while on vacation in [place] where she had a negative rapid strep test, negative mono test and negative Covid test. She was treated with 3 days of steroids and clindamycin and her symptoms improved with the steroids were finished she again developed fevers and sore throat she was reevaluated in our emergency department on 319 treated with a Medrol Dosepak and cephalexin for presumptive bacterial tonsillitis, she noted feeling much better the next day with resolution of her symptoms. Her symptoms returned after completing the Medrol Dosepak. She continues with cephalexin. Patient has been the past few weeks her boyfriend who has not developed any symptoms she notes being sexually active, denies any IV drug use, history of HIV or blood-borne exposures. In the emergency department routine labs were obtained, CBC demonstrating a white count of 18 with a neutrophil predominance, chemistries demonstrating elevated creati nine to 1.23, CMP within normal limits, urine test negative. CT of the neck demonstrating findings consistent with severe pharyngitis, small developing peritonsillar abscess cannot be excluded. Given these findings the decision was made to admit her for IV antibiotics. On arrival the patient was sitting comfortably in the bed, and reiterated a history as described above. Per discussion with the patient she has a very mild penicillin allergy. Endorses subjective fever and chills sore throat denies nausea or vomiting, chest pressure chest pain, shortness of breath. Principal Diagnosis 1. Acute Pharyngitis 2. CARMEN 3. Leukocytosis- improving 4. Tachycardia- resolved 5. Radiographic Evidence of Sinusitis without Clinical findings Discharge Exam General: Resting comfortably in her hospital bed. She does not appear ill or toxic. NAD. HEENT: Does not have a muffled or "hot potato" voice. Able to control oral secretions. Does have tonsillar enlargement (R>L) with exudate and ulcerations on the right tonsil (improving) Anterior and posterior cervical chain lymphadenopathy (improving). Able to turn her head side to side without difficulty. Neck: No JVD. Negative hepatojugular reflex Cardiac: RRR without M/G/R Lungs: CTA without W/R/R Abdomen: Normoactive X4. Soft and nontender in all quadrants. Extremities: No peripheral clubbing cyanosis or edema Neuro: A&O X4. Cranial nerves II through XII are grossly intact. No focal neuro deficits Skin: No obvious skin lesions or rashes Psych: Appropriate affect. Pleasant and cooperative Discharge Data Allergies Allergy/AdvReac Type Severity Reaction Status Date / Time Penicillins Allergy Mild Hives Verified 01/17/22 00:55 Consultations 01/17/22 01:10 ED Decision to Admit Stat Ordered Studies 01/16/22 20:30 CT soft tissue neck w con Urgent Impression: Bilateral small peritonsillar abscesses with associated cervical lymph node enlargement. The airway is broadly patent. There is left maxillary sinusitis. Hospital Course (1) Acute tonsillitis: - Symptoms ongoing X 3 weeks - Has since failed clindamycin and Keflex along with 2 tapering courses of prednisone - Monospot, Covid, and rapid strep negative - Fever of 102.8, tachycardia of 122, and leukocytosis of 18,000 on arrival - Tolerating oral intake. Able to control oral secretions. No jaw claudication. - CT of the soft tissues of the neck showing severe pharyngitis with questionable developing peritonsillar abscess - Patient empirically treated with Unasyn. Does have a reported penicillin allergy but seems to be tolerating Unasyn at present time. - Doxycycline added (for coverage against Chlamydia and Gonorrhea) - EBV pending Clinically, seems very consistent with mono. Perhaps her Monospot is negative as her viral load is not high enough to flag a positive test. She is now 3 weeks into the symptom course - Biofire negative - Given that she does practice oral sex, have ordered an HSV along with throat swab for chlamydia and gonorrhea--> currently pending - No clinical evidence to suggest Gaetano's angina -Case discussed with ENT (Dr. Valadez) who agrees no clinical indication for aspiration or I&D at this time. She agrees with treatment as outlined above. She would recommend IV antibiotics X 36 to 48 hours and if clinical improvement noted, discharged home with follow-up. 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 In addition, she has seen multiple students with post Covid peritonsillar abscesses. -Patient seen on 01/19 and overall feels significantly better. She has been afebrile X > 24 hours, she is no longer tachycardic and her white blood cell count is downtrending (currently 13 K). At this time, she is medically hemodynamically stable for discharge to home with follow-up to see ENT. (2) Fever: - has since defervesced (3) Leukocytosis: - 18 K upon arrival. - Likely due to underlying infectious process; however, was on steroids. That may be contributing - Down to 13 K. (4) CARMEN (acute kidney injury): - Creatinine 1.23 upon arrival. Likely related to dehydration - improved with IVF --> 0.89 Plan of care discussed with Dr. Garces and Dr. Valadez (ENT) Total Time Total Time Spent Total Time Spent (In Minutes): 45 minutes including time spent with patient, discussion with parents, coordination of care, discussion with ENT and preparation of documentation Discharge Plan Discharge Items Patient Disposition: Home - Self-Care Reason For Visit: SORE THROAT Discharge Diagnosis: 1. Acute Pharyngitis 2. CARMEN 3. Leukocytosis- improving 4. Tachycardia- resolved 5. Sinusitis Condition on Discharge: Good Activity: Resume your previous activity Non-emergency contact: Primary Care Provider and Specialist Call non-emergency contact if: you have any medication questions, your symptoms worsen and your rectal temperature is above 100.4 Follow-up/Referrals: [facility] [Primary Care Provider] - Rebecca Valadez MD [Surgeon] - 02/11/22 1:00 pm (Ear, Nose & Throat) Diet: Regular Addtl Attending Provider Instructions: You presented to the Emergency Department with a sore throat ongoing x3 weeks after failing 2 courses of antibiotics (Clindamycin and Keflex) along with 2 courses of Prednisone You presented with a fever, an elevated heart rate and elevated white blood cell count (this could be related to infection but also the steroids) The CT scan of your throat showed concern for a developing abscess You have been treated with IV antibiotics and have shown favorable response. I have been in touch with an Ears, Nose and Throat Specialist (Dr. Valadez) who agreed with your treatment and is recommending that you be continued on both antibiotics for a total of 2 weeks 1. Augmentin 875mg/125mg 1 tablet twice a day (to complete on 01/31) 2. Doxycycline 100mg 1 tablet twice a day (to complete on 01/31) I suspect that this is all related to a viral infection. What we have tested for and is back, is thus far negative. Some of your viral panel is pending. Given the concern for a developing abscess and your presentation (fever, elevated heart rate and white blood cell count), we feel it is best to be treated with antibiotics. As discussed, these antibiotics do not eradicate only the BAD bacteria but also the GOOD bacteria in your gut. This poses risk of superinfections within the GI tracts (C.Diff). As discussed, I recommend eating yogurt/cheese and foods WITH LIVE CULTURES along with a probiotic. You were a little dehydrated upon arrival (which was also contributing to your elevated heart rate) and your renal function was off ever so slightly (for your age). This improved with aggressive hydration (creatinine went from 1.23 --> 0.89) If you developed diarrhea (even up to 3 months after completing the antibiotics): >10x/day and have abdominal pain, fever, feel sick--> this would be concerning for C.Diff and you should seek medical attention (call your Family Provider) I have ordered the magic mouthwash to use as needed Follow up with the ENT (Dr. Valadez): 2 weeks as scheduled Follow up with PCP: 7-10 days If you develop worsening throat pain and/or fever >/=101, please contact Dr. Valadez at [phone] Please remember that antibiotic can negate the effects of your oral contraception. It is important to use a backup method of protection (such as condoms) while on antibiotics and for up to 1 week after completing them. Doxycycline Has been known to cause dyspepsia or increased acid reflux. If this occurs, can utilize [id number]-[id number] medications like Pepcid. Pending Studies at Discharge: Yes Studies:: EBV, HSV, Throat Culture for Chl/GN Stand-Alone Forms: My [facility], Smoking Cessation Medications and DC Order Prescriptions: New Advanced Probiotic 625 mg (10 billion cell) Capsule 2 cap PO DAILY Qty: 30 RF: 0 First - Mouthwash Blm [Magic Mouthwash] 5 ml PO Q6H PRN (Reason: sore throat) Qty: 300 RF: 0 amoxicillin-pot clavulanate 875-125 mg tablet 1 tab PO BID Qty: 25 RF: 0 doxycycline hyclate 100 mg capsule 100 mg PO BID Qty: 25 RF: 0 Continued norethindrone-e.estradiol-iron [[place] 24 Fe] 1 mg-20 mcg (24)/75 mg (4) Tablet 1 tab PO QAM RF: 0 Discontinued cephalexin 500 mg capsule 500 mg PO TID 10 Days Qty: 30 RF: 0 methylprednisolone [Medrol (Jose)] 4 mg tablets,dose pack 4 mg PO DIRECTED Qty: 21 RF: 0 Probiotic 3 billion cell Capsule 0 mmu cells PO QAM RF: 0 Discharge Orders: Discharge Order (Routine); Ordered 01/19/22 Ordered By: Lorena Schreiber Admission Data Admit Date/Time: 01/17/22 01:59 Attending Provider: Cliff Garces Admit Provider: Braeden Alcazar I. Primary Care Provider: [place] Other Providers: Emerald Alcazar Other Interventions: Discharge Summary Assessment (RN) Last Done: 01/19/22 11:38 Coding Level of Care Code D/C DAY MANAGEMENT >30 MINS Diagnoses Acute tonsillitis J03.90 Pharyngitis/tonsillitis etiology: unspecified etiology Fever R50.81 Fever type: due to other condition Leukocytosis D72.829 Leukocytosis type: unspecified CARMEN (acute kidney injury) N17.9
== END 2022-01-19 15:08 | disposition home or self-care (01) ==
LOC: 3W 19:30 → ED 19:30 → SUATTDRO 01-17 01:59 → 3W 01-17 03:25
DX: R50.81 Fever presenting with conditions classified elsewhere; D72.829 Elevated white blood cell count, unspecified; Z79.899 Other long term (current) drug therapy; N17.9 Acute kidney failure, unspecified; B96.89 Other specified bacterial agents as the cause of diseases classified elsewhere; Z88.0 Allergy status to penicillin; J03.90 Acute tonsillitis, unspecified; J36 Peritonsillar abscess; Z20.822 Contact with and (suspected) exposure to COVID-19